=== PATIENT | male | born 1975 | race Caucasian/White ===

== ENCOUNTER 2020-04-11 14:22 | Emergency (ER) | payer BC ==
[2020-04-11 14:29] VITALS: BP 146/68
--- NOTE | 2020-04-11 14:40 | ED Physician Documentation ---
PD HPI UPPER EXT INJURY - Stated complaint Stated Complaint: FINGER LACS - Chief complaint Chief Complaint: Laceration - History obtained from History obtained from: Patient - History of Present Illness Location: Left, Finger (middle and rings finger tips.) Type of injury: Laceration (finger tips caught with blade of skilsaw. Just tips injured but brisk bleeding initially. He ran it under water for a minute and then applied dressing and held it. 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) Timing - details: Abrupt onset Worsened by: Palpating Associated symptoms: No: Weakness, Numbness Similar symptoms before: Has not had sx before Review of Systems Constitutional: denies: Fever Nose: denies: Rhinorrhea / runny nose, Congestion Throat: denies: Sore throat Respiratory: denies: Cough Skin: reports: Laceration (s) (just the two fingertips) Neurologic: denies: Focal weakness, Numbness PD PAST MEDICAL HISTORY - Past Medical History Cardiovascular: None Neuro: None Endocrine/Autoimmune: None - Allergies Allergies/Adverse Reactions: Allergies Allergy/AdvReac Type Severity Reaction Status Date / Time No Known Drug Allergies Allergy Verified 04/11/20 14:26 PD ED PE NORMAL - Vitals Vital signs reviewed: Yes - General General: Alert and oriented X 3, No acute distress, Well developed/nourished - Derm Derm: Normal color, Warm and dry - Extremities Extremities: Other (left middle and ring finger tips with small lacerations: ring finger is partial thickness small avulsion with loose skin, not full thickness and no FB, not involving nailbed. The middle finger just full thickness, only about 1 cm, with some loose skin at edge. Just into distal nail/bed without FB.) - Neuro Neuro: No motor deficit, No sensory deficit Results - Vitals Vitals: Vital Signs - 24 hr 04/11/20 14:26 Temperature 36.5 C Heart Rate 48 L Respiratory 16 Rate Blood Pressure 146/68 H O2 Saturation 98 Oxygen O2 Source Room air PD MEDICAL DECISION MAKING - ED course Complexity details: re-evaluated patient (areas not really tender. CLeansed well in ER and then benzoin/steri strips and glue applied by me. ), considered differential (wounds not deep enough to be at bone. The nail is injured at distal part of middle finger, but not avulsed. Nailbed not really exposed. ), d/w patient Departure - Departure Disposition: 01 Home, Self Care Clinical Impression: Finger laceration Qualifiers: Encounter type: initial encounter Finger: unspecified finger Damage to nail status: with damage Foreign body presence: without foreign body Laterality: left Qualified Code(s): S61.319A - Laceration without foreign body of unspecified finger with damage to nail, initial encounter Condition: Stable Record reviewed to determine appropriate education?: Yes Instructions: ED Laceration Hand Comments: Keep the Steri-Strips and glue on and clean and dry until they fall off on their own after several days. That showed have allowed enough sealing together of the wound to then treated with cleaning ointment and Band-Aids. Tylenol ibuprofen as needed for pains. You were given a tetanus booster today that would be good for 10 years. Discharge Date/Time: 04/11/20 15:23
[2020-04-11] MEDS ORDERED: TETANUS/DIPHTHERIA/PERTUSSIS 0.5 ML SYRINGE IM ONE (15:05)
== END 2020-04-11 15:23 | disposition home or self-care (01) ==
LOC: ED 14:22
DX: S61.213A Laceration without foreign body of left middle finger without damage to nail, initial encounter (principal); S61.215A Laceration without foreign body of left ring finger without damage to nail, initial encounter; W29.8XXA Contact with other powered hand tools and household machinery, initial encounter
CPT/HCPCS: 90471; 99283

== ENCOUNTER 2023-05-29 13:04 | Outpatient (CLI) | payer BC ==
--- NOTE | 2023-05-29 14:24 | Ultrasound Report ---
PROCEDURE: Carotid Doppler Complete INDICATIONS: PULSATILE TINNITUS TECHNIQUE: Color and pulse Doppler interrogation was performed of both carotid systems, with image documentation and velocity measurements. COMPARISON: None. FINDINGS: Right side: Brachial blood pressure: 109/61 mm Hg. Common carotid artery peak systolic velocity: 111 cm/sec. Internal carotid artery peak systolic velocity: 68 cm/sec. Internal carotid artery end diastolic velocity: 24 cm/sec. External carotid artery peak systolic velocity: 157 cm/sec. ICA/CCA peak systolic ratio: 0.61 . Lino scale imaging description: No significant atherosclerotic plaque. There is tortuosity of the ri ght ICA. Percent internal carotid artery stenosis: No hemodynamically significant stenosis. Vertebral artery: Flow direction is antegrade. Left side: Brachial blood pressure: 111/58 mm Hg. Common carotid artery peak systolic velocity: 114 cm/sec. Internal carotid artery peak systolic velocity: 87 cm/sec. Internal carotid artery end diastolic velocity: 32 cm/sec. External carotid artery peak systolic velocity: 88 cm/sec. ICA/CCA peak systolic ratio: 0.76 . Lino scale imaging description: No significant atherosclerotic plaque. Percent internal carotid artery stenosis: No hemodynamically significant stenosis. Vertebral artery: Flow direction is antegrade. IMPRESSION: 1. In the right internal carotid artery, there is no hemodynamically significant stenosis based on pe ak systolic velocity criteria. 2. In the left internal carotid artery, there is no hemodynamically significant stenosis based on pea k systolic velocity criteria. 3. Antegrade blood flow within the right vertebral artery. 4. Antegrade blood flow within the left vertebral artery. The estimate of stenosis included in the report of the imaging study was calculated using the [facility]-end orsed standards of carotid artery stenosis. Reviewed by: Ervin Martin MD on 05/29/2023 2:23 PM PDT Approved by: Ervin Martin MD on 05/29/2023 2:23 PM PDT Station ID: [id number]
== END 2023-05-29 13:05 | disposition home or self-care (01) ==
LOC: DI 13:04
PROVIDERS: ATTEND Physician Assistant
DX: H93.A2 Pulsatile tinnitus, left ear (principal)
CPT/HCPCS: 93880